=== PATIENT | male | born 1975 | race Caucasian/White ===

== ENCOUNTER 2020-05-20 07:17 | Emergency (ER) | payer OTHER ==
[~2020-05-20] VITALS: Ht 182.9 cm; Wt 107.5 kg
--- NOTE | ~2020-05-20 | EMS ---
[address] [address] EMS Patient Care Report Name: CHARIS[facility] SMITH [id number] Admission: 05/20/20 Attend Phys: Discharge: 05/20/20 Date of : [birth year] Report #: [id number] THIS REPORT FOR: //name// Report Transmitted: 05/20/2020 10:38 EMS Care Summary [facility] [id number] @ 05/20/2020 06:24 Incident Location [address] [place] [address] Patient CHARISSE SMITH Male, 45 Years 1975 Patient Address Patient Allergies No known allergies, Patient Medications Albuterol, Chief Complaint My chest hurts Disposition Transported No Lights/[place] Dispatch Reason Chest Pain (Non-Traumatic) Transported To [facility] Narrative Dispatch: Med 1 response requested to [facility] for a male with chest pain. Med 1 copied the call and began our response to the scene. We arrived on scene without incident. 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 Patient alert with a GCS of 15. He advised his chest was hurting and felt tingling sensation in the left hand. Patient was difficulty to understand due to him hyperventilating. We tried to population health coach him to slow his breathing. [place] [address] [address] EMS Patient Care Report Name: CHARISSE SMITH Room: [facility] Geraldine.#: [id number] Admission: 05/20/20 Attend Phys: Discharge: 05/20/20 Date of : 77 Report #: [id number] History of present illness: Patient got to work at 0400 in which he felt fine. He was sitting down in the office when he began to have pressure to the center chest. As the pain increased he began to have the tingling sensation in his left hand. No history of cardiac problems. Does have asthma but doesn't feel its related. He denied any anxiety or increased stressors. He had no trouble breathing and did not feel light headed. He denied any recent sickness of fever, chills, or coughs. He rated the pain to be an 8/10 with pressure to the center chest. No increase or decrease of pain with palpation or breathing. He denied that anything was able to make the pain better or worse. Assessment: Airway open and patent with clear lung sounds. Alert with a GCS of 15. Able to speak in full sentences without difficulty. Skin noted to be pink, warm and dry. Pulse present and regular at the radial. secondary assessment as noted in tab Reason for transport: Patient requested to go to the ER for further evaluation due to chest pain. Treatments: ALS assessment, vitals, ECG showing sinus rhythm, ASA, IV access ,Nitro spray x3, transport. Summary: ECG and vitals obtained at his side. ASA given. Patient was assisted to stand up from his chair to sit directly on the cot. He was secured and covered with a blanket. He was then taken to the ambulance and placed inside. Vitals were monitored. IV access obtained. Nitro spray given. We began our transport to [place] ER for evaluation. Patient was coached to slow his breathing, but he stated that he was not able to do so. Patient received two additional doses of nitro with again no relief. He advised his pain remained 8/10. The tingling did not subside in his hand either. Radio report was called in to the ER 10 min prior to arrival. Once we arrived at destination patient was taken inside and to ER 15. He was moved to the ER bed while report was given. Signatures were obtained and care was transferred. Med 1 cleared to return to service. Initial Vitals @06:37P: 104,R: 26,BP: 160/90,Pain: 8/10,GCS: 15,Glucose: 115,SpO2: 100,Revised Trauma: 12, @06:53P: 93,R: 26,BP: 155/94,Pain: 8/10,GCS: 15,EtCO2: 16,SpO2: 100,Revised Trauma: 12, @06:40P: 96,R: 28,BP: 153/88,Pain: 8/10,GCS: 15,EtCO2: 18,SpO2: 100,Revised Trauma: 12, @07:08P: 92,R: 24,BP: 128/70,Pain: 8/10,GCS: 15,SpO2: 99,Revised Trauma: 12, @06:48P: 96,R: 26,BP: 140/90,Pain: 8/10,GCS: 15,EtCO2: 17,SpO2: 100,Revised Trauma: 12, [facility] [address] [place] [address] EMS Patient Care Report Name: CHARISSE SMITH Room: [facility]#: [id number] Admission: 05/20/20 Attend Phys: Discharge: 05/20/20 Date of : [birth year] Report #: [id number] @07:12P: 94,R: 24,BP: 130/76,Pain: 8/10,GCS: 15,Revised Trauma: 12, Assessments @06:39MENTAL:Time Oriented,Person Oriented,Event Oriented,Place Oriented,SKIN:HEENT:LUNG SOUNDS:ABDOMEN:PELVIS//GI:EXTREMITIES:PULSE:NEURO:@07:26MENTAL:Event Oriented,Person Oriented,Place Oriented,Time Oriented,SKIN:HEENT:LUNG SOUNDS:ABDOMEN:PELVIS//GI:EXTREMITIES:PULSE:NEURO: Impression Chest Pain / Discomfort Procedures @06:39ALS AssessmentResponse: UnchangedSucceeded@06:57Saline Lock 0cc (20 ga) Site: Antecubital-RightResponse: UnchangedSucceeded@06:39Surgical Mask on PatientResponse: Unchanged@07:00Nitro [place] - 0.4 Milligrams (mg) - SublingualResponse: Unchanged@06:41Aspirin - 324 Milligrams (mg) - OralResponse: Unchanged@07:05Nitro [place] - 0.4 Milligrams (mg) - SublingualResponse: Unchanged@06:4012-Lead ECGResponse: UnchangedSucceeded@06:4812-Lead ECGResponse: UnchangedSucceeded@07:0812-Lead ECGResponse: UnchangedSucceeded@07:0912-Lead ECGResponse: UnchangedSucceeded@07:11Nitro [place] - 0.4 Milligrams (mg) - SublingualResponse: Unchanged Timeline 06:23,Call Received 06:24,Dispatched 06:26,En Route 06:34,On Scene 06:36,At Patient 06:37,BP: 160/90 M,PULSE: 104,RR: 26 R,SPO2: 100 Ox,ETCO2: ,B,PAIN: 8,GCS: 15, 06:39,ALS Assessment,Response: UnchangedSucceeded, 06:39,Surgical Mask on Patient,Response: Unchanged 06:40,12-Lead ECG,Response: UnchangedSucceeded, 06:40,BP: 153/88 M,PULSE: 96,RR: 28 R,SPO2: 100 Ox,ETCO2: 18 ,BG: ,PAIN: 8,GCS: 15, 06:41,Aspirin - 324 Milligrams (mg) - Oral,Response: Unchanged 06:47,Depart Scene 06:48,12-Lead ECG,Response: UnchangedSucceeded, 06:48,BP: 140/90 M,PULSE: 96,RR: 26 R,SPO2: 100 Ox,ETCO2: 17 ,BG: ,PAIN: 8,GCS: 15, 06:53,BP: 155/94 M,PULSE: 93,RR: 26 R,SPO2: 100 Ox,ETCO2: 16 ,BG: ,PAIN: 8,GCS: 15, 06:57,Saline Lock 0cc 20 ga Site: Antecubital-Right,Response: UnchangedSucceeded, [place] [address] EMS Patient Care Report Name: CHARISSE SMITH Room: [facility]#: [id number] Admission: 05/20/20 Attend Phys: Discharge: 05/20/20 Date of : 77 Report #: [id number] 07:00,Nitro [place] - 0.4 Milligrams (mg) - Sublingual,Response: Unchanged 07:05,Nitro [place] - 0.4 Milligrams (mg) - Sublingual,Response: Unchanged 07:08,12-Lead ECG,Response: UnchangedSucceeded, 07:08,BP: 128/70 M,PULSE: 92,RR: 24 R,SPO2: 99 Ox,ETCO2: ,BG: ,PAIN: 8,GCS: 15, 07:09,12-Lead ECG,Response: UnchangedSucceeded, 07:11,Nitro [place] - 0.4 Milligrams (mg) - Sublingual,Response: Unchanged 07:12,BP: 130/76 M,PULSE: 94,RR: 24 R,SPO2: Ox,ETCO2: ,BG: ,PAIN: 8,GCS: 15, 07:15,At Destination 07:53,Call Closed Disclaimer v1.1 Copyright 2020 [employer] This EMS Care Summary contains data elements from the applicable legal record (which may be displayed differently). It is designed to provide pertinent information for the following purposes: continuity of care, clinical quality, and state data reporting. The complete legal record is available to ED staff and administrators of the receiving hospital in [employer] Patient Tracker. All data is provided "as is."
[2020-05-20] MEDS ORDERED: PROAIR HFA8.5 GM INH (07:28)
[2020-05-20 07:38] LABS: ABSOLUTE BASOPHILS 0.1 thou/uL (0.0-0.2); ABSOLUTE EOSINOPHILS 0.2 thou/uL (0.0-0.7); ABSOLUTE MONOCYTES 0.8 thou/uL (0.0-1.2); ABSOLUTE NEUTROPHILS 5.9 thou/uL (1.6-8.1); EOSINOPHILS 2.1 %; HEMATOCRIT 44.7 % (42.0-52.0); HEMOGLOBIN 15.1 gm/dL (14.0-18.0); LYMPHOCYTES 22.2 %; MCH 30.7 pg (26.0-34.0); MCHC 33.8 g/dL (28.0-37.0); MCV 90.8 fL (80.0-100.0); MONOCYTES 9.1 %; MPV 8.3 fl. (7.2-11.1); NUCLEATED RBCS 0 /100WBC; PLATELET COUNT* 252 thou/uL (150-400); POLYS 65.6 %; RBC 4.92 mil/uL (4.50-6.00); RDW-CV 13.7 % (10.5-14.5); WBC 8.9 thou/uL (4.0-11.0)
[2020-05-20 07:50] LABS: APTT 24.8 Seconds (25.0-31.3); PROTIME 9.8 Seconds (9.20-11.50)
[2020-05-20 07:51] LABS: INR < 0.9
[2020-05-20 08:12] LABS: ANION GAP 16 mmol/L (7-16); BUN 16 mg/dL (7-18); CALCIUM 9.6 mg/dL (8.5-10.1); CHLORIDE 104 mmol/L (98-107); CO2 18 mmol/L (21-32); CREATININE 1.1 mg/dL (0.6-1.3); GLUCOSE 124 mg/dL (70-99); POTASSIUM 3.8 mmol/L (3.5-5.1); SODIUM 138 mmol/L (136-145)
[2020-05-20 08:27] LABS: ALBUMIN 3.5 g/dL (3.4-5.0); ALKALINE PHOSPHATASE 80 U/L (46-116); CK-MB MASS < 0.5 ng/mL (<0.5-3.6); LIPASE 123 U/L (73-393); MAGNESIUM 1.9 mg/dL (1.8-2.4); NT-PRO BRAIN NAT PEPTIDE 13 pg/mL (<300); SGOT 12 U/L (15-37); SGPT 24 U/L (30-65); TOTAL BILIRUBIN 0.4 mg/dL (<0.1-1.0); TOTAL PROTEIN 6.8 g/dL (6.4-8.2)
[2020-05-20 10:04] VITALS: BP 114/67
--- NOTE | 2020-05-20 14:08 | EKG ---
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: DONTRELL : 1975 Requested By: Hiram Morse Order Number: [id number] MD: Benoit Garcia Measurements Intervals [place] Rate: 74 P: 35 DE: 139 QRS: 41 QRSD: 89 T: 41 QT: 357 QTc: 396 Interpretive Statements Sinus rhythm Borderline T abnormalities, lateral leads Minimal ST elevation, anterior leads No previous ECG available for comparison Electronically Signed On 05-20-2020 14:08:24 CRUSHER OPERATOR by Benoit Garcia [email or web address] <ELECTRONICALLY SIGNED> By: Benoit Garcia MD, [facility] 05/20/20 1408 Benoit Garcia MD, [facility] /EPI
== END 2020-05-20 10:05 | disposition home or self-care (01) ==
LOC: M.ERS 07:17
PROVIDERS: Family Medicine
DX: R07.89 Other chest pain (principal); Z79.899 Other long term (current) drug therapy